=== PATIENT | male | born 1960 | race Caucasian/White ===

== ENCOUNTER 2019-03-04 16:00 | Emergency (ER) | payer BC ==
[2019-03-04] MEDS ORDERED: Sodium Chloride 0.9% 1,000 ML IV ONE (16:05)
[2019-03-04] MEDS ORDERED: Ketorolac 30 MG/ML SDV IVPUSH ONE (16:13)
--- NOTE | 2019-03-04 16:13 | EDM.PDOC ---
ED HPI GENERAL MEDICAL PROBLEM - General Chief Complaint: Abdominal Pain Stated Complaint: STOMACH PAIN Time Seen by Provider: 03/04/19 16:05 Source of Information: Reports: Patient History Limitations: Reports: No Limitations - History of Present Illness INITIAL COMMENTS - FREE TEXT/NARRATIVE: HISTORY AND PHYSICAL: History of present illness: Patient is a 58-year-old male who presents to the emergency room today with complaints of right upper abdominal pain. He states over the past 2 days he has had sensation of needing to void although has been having difficulty. States nothing makes the pain better or worse. Patient denies any fever, chills, headache, change in vision, syncope or near syncope. Denies any chest pain, back pain, shortness of breath or cough. Denies any nausea, vomiting, diarrhea, constipation or dysuria. Has not noted any blood in urine or stool. Denies any testicular erythema or soft tissue swelling. Patient has been eating and drinking appropriately. Review of systems: As per history of present illness and below otherwise all systems reviewed and negative. Past medical history: As per history of present illness and as reviewed below otherwise noncontributory. Surgical history: As per history of present illness and as reviewed below otherwise noncontributory. Social history: See social history for further information Family history: As per history of present illness and as reviewed below otherwise noncontributory. Physical exam: General: Well-developed and well-nourished 58-year-old male. Alert and oriented. Nontoxic appearing and in no acute distress. HEENT: Atraumatic, normocephalic, pupils equal and reactive bilaterally, negative for conjunctival pallor or scleral icterus, mucous membranes moist, trachea midline. No drooling or trismus noted. No meningeal signs. No hot potato voice noted. Lungs: Clear to auscultation, breath sounds equal bilaterally, chest nontender. Heart: S1S2, regular rate and rhythm without overt murmur Abdomen: Soft, nondistended, right upper and lower quadrant tenderness with palpation. Negative for masses or hepatosplenomegaly. Negative for costovertebral tenderness. Pelvis: Stable nontender. Genitourinary: Deferred. Rectal: Deferred. Skin: Intact, warm, dry. No lesions or rashes noted. Extremities: Atraumatic, moves all extremities per self without difficulty or deficits, negative for cords or calf pain. Neurovascular unremarkable. Neuro: Awake, alert, oriented. Cranial nerves II through XII unremarkable. Cerebellum unremarkable. Motor and sensory unremarkable throughout. Exam nonfocal. Notes: CT shows a 3 mm stone at the right UVJ causing moderate hydronephrosis. A few tiny stones are left in the kidney. Dr. Bennett was consulted on this case. Findings were shared with the patient. We'll give him instant med for [place], pain management. Prescription for Flomax as the pharmacy is closed. His first dose was given here. Urine strainer with education was provided. Supportive care measures were reviewed and discussed. Voices understanding and is agreeable to plan of care. Denies any further questions or concerns at this time. Diagnostics: CBC, CMP, UA, Lipase, CT abdomen and pelvis Therapeutics: IV fluids, Toradol, Flomax Prescription: [place] (#20) Flomax Impression: Kidney stone, right Plan 1. Increase your oral fluids. Make sure you're straining her urine when you urinate 2. Tylenol and/or ibuprofen as needed for pain management. [place] for moderate to severe pain. This medication may cause drowsiness a do not take it will driving her needing to be functioning outside of the house. His take your Flomax once daily. 3. Follow-up with urology, Dr. Cooley, as we discussed. Return to the ED as needed as discussed. Definitive disposition and diagnosis as appropriate pending reevaluation and review of above. Duration: Day(s): Location: Reports: Abdomen right abd Pain Score (Numeric/FACES): 7 - Related Data Allergies Allergy/AdvReac Type Severity Reaction Status Date / Time No Known Allergies Allergy Verified 03/04/19 16:16 Home Meds: Home Meds . [No Known Home Meds] 03/04/19 [History] ED ROS GENERAL - Review of Systems Review Of Systems: ROS reveals no pertinent complaints other than HPI. ED EXAM, GI/ABD - Physical Exam Exam: See Below (See dictation) Course - Vital Signs Last Recorded V/S: Last Vital Signs Temp 96.6 F 03/04/19 16:16 Pulse 91 03/04/19 16:16 Resp 18 03/04/19 16:16 BP 159/87 H 03/04/19 16:16 Pulse Ox 95 03/04/19 16:16 - Orders/Labs/Meds Labs: Laboratory Tests 03/04/19 03/04/19 03/04/19 Range/Units 16:25 16:31 16:31 WBC 13.00 H (4.0-11.0) K/uL RBC 5.12 (4.50-5.90) M/uL Hgb 15.7 (13.0-17.0) g/dL Hct 46.1 (38.0-50.0) % MCV 90.0 (80.0-98.0) fL MCH 30.7 (27.0-32.0) pg MCHC 34.1 (31.0-37.0) g/dL RDW Std Deviation 43.5 (28.0-62.0) fl RDW Coeff of Justin 13 (11.0-15.0) % Plt Count 222 (150-400) K/uL MPV 9.40 (7.40-12.00) fL Neut % (Auto) 87.1 H (48.0-80.0) % Lymph % (Auto) 9.1 L (16.0-40.0) % [place] % (Auto) 3.5 (0.0-15.0) % Eos % (Auto) 0.1 (0.0-7.0) % Baso % (Auto) 0.2 (0.0-1.5) % Neut # (Auto) 11.3 H (1.4-5.7) K/uL Lymph # (Auto) 1.2 (0.6-2.4) K/uL [place] # (Auto) 0.5 (0.0-0.8) K/uL Eos # (Auto) 0.0 (0.0-0.7) K/uL Baso # (Auto) 0.0 (0.0-0.1) K/uL Nucleated RBC % 0.0 /100WBC Nucleated RBCs # 0 K/uL Sodium 132 L (136-148) mmol/L Potassium 3.7 (3.5-5.1) mmol/L Chloride 99 (98-107) mmol/L Carbon Dioxide 23.0 (21.0-32.0) mmol/L BUN 16 (7.0-18.0) mg/dL Creatinine 1.2 (0.8-1.3) mg/dL Est Cr Clr Drug Dosing 68.74 mL/min Estimated GFR (MDRD) > 60.0 ml/min Glucose 192 H (74-106) mg/dL Calcium 9.2 (8.5-10.1) mg/dL Total Bilirubin 0.6 (0.2-1.0) mg/dL AST 18 (15-37) IU/L ALT 31 (14-63) IU/L Alkaline Phosphatase 89 (46-116) U/L Total Protein 7.1 (6.4-8.2) g/dL Albumin 4.1 (3.4-5.0) g/dL Globulin 3.0 (2.6-4.0) g/dL Albumin/Globulin Ratio 1.4 (0.9-1.6) Lipase 110 (73-393) U/L Urine Color YELLOW Urine Appearance CLEAR Urine pH 5.5 (5.0-8.0) Ur Specific [place] >= 1.030 (1.001-1.035) Urine Protein NEGATIVE (NEGATIVE) mg/dL Urine Glucose (UA) NEGATIVE (NEGATIVE) mg/dL Urine Ketones 15 H (NEGATIVE) mg/dL Urine Occult Blood LARGE H (NEGATIVE) Urine Nitrite NEGATIVE (NEGATIVE) Urine Bilirubin NEGATIVE (NEGATIVE) Urine Urobilinogen 0.2 (<2.0) EU/dL Ur Leukocyte Esterase NEGATIVE (NEGATIVE) Urine RBC 10-20 (0-2/HPF) Urine WBC 0-2 (0-5/HPF) Ur Epithelial Cells RARE (NONE-FEW) Urine Bacteria RARE (NEGATIVE) Meds: Medications Discontinued Medications Generic Name Dose Route Start Last Admin Trade Name Freq PRN Reason Stop Dose Admin Sodium Chloride 1,000 mls @ 999 mls/hr 03/04/19 16:05 03/04/19 16:34 Normal Saline IV 03/04/19 17:05 999 mls/hr STAT ONE Administration Ketorolac Tromethamine 30 mg 03/04/19 16:13 03/04/19 16:34 Toradol IVPUSH 03/04/19 16:14 30 mg ONETIME ONE Administration Tamsulosin HCl 0.4 mg 03/04/19 17:17 03/04/19 17:29 Flomax PO 03/04/19 17:18 0.4 mg ONETIME ONE Administration Departure - Departure Time of Disposition: 17:25 Disposition: Home, Self-Care 01 Clinical Impression: Kidney stone on right side - Discharge Information Instructions: Kidney Stones, [id number] Referrals: PCP,Unknown [Primary Care Provider] - Forms: ED Department Discharge Additional Instructions: The following information is given to patients seen in the emergency department who are being discharged to home. This information is to outline your options for follow-up care. We provide all patients seen in our emergency department with a follow-up referral. The need for follow-up, as well as the timing and circumstances, are variable depending upon the specifics of your emergency department visit. If you don't have a primary care physician on staff, we will provide you with a referral. We always advise you to contact your personal physician following an emergency department visit to inform them of the circumstance of the visit and for follow-up with them and/or the need for any referrals to a consulting specialist. The emergency department will also refer you to a specialist when appropriate. This referral assures that you have the opportunity for follow-up care with a specialist. All of these measure are taken in an effort to provide you with optimal care, which includes your follow-up. Under all circumstances we always encourage you to contact your private physician who remains a resource for coordinating your care. When calling for follow-up care, please make the office aware that this follow-up is from your recent emergency room visit. If for any reason you are refused follow-up, please contact the [facility] Emergency Department at and asked to speak to the emergency department charge nurse. [facility] [address] [place] [id number] [id number] [facility] Specialty Care - Urology [address] [place] [id number] 1. Increase your oral fluids. Make sure you're straining her urine when you urinate 2. Tylenol and/or ibuprofen as needed for pain management. [place] for moderate to severe pain. This medication may cause drowsiness a do not take it will driving her needing to be functioning outside of the house. His take your Flomax once daily. 3. Follow-up with urology, Dr. Cooley, as we discussed. Return to the ED as needed as discussed.
[2019-03-04 16:59] LABS: CHLORIDE,CL 99 mmol/L (98-107); SODIUM,NA 132 mmol/L (136-148)
--- NOTE | 2019-03-04 17:14 | CT ---
INDICATION: Right lower quadrant abdomen pain. TECHNIQUE: CT abdomen and pelvis without contrast. COMPARISON: None. FINDINGS: Lower chest: Unremarkable. Liver: Normal in size and attenuation. No masses. Gallbladder and bile ducts: No stones or inflammation. No biliary dilatation. Pancreas: Unremarkable. No mass or inflammation. Spleen: Normal in size. No masses. Adrenal glands: Small adenoma is in the right adrenal gland. Kidneys: A 3 mm stone is at the right ureterovesical junction causing moderate hydronephrosis. Few tiny stones are in the lower pole of the left kidney. GI tract: Unremarkable. Normal in caliber. No sign of mass or inflammation. Normal appendix. Vasculature: Unremarkable. Lymph nodes: No lymphadenopathy. Abdominal wall/Omentum/Peritoneum: Unremarkable. No sign of mass or infiltration. No free air or significant free fluid. Pelvis: Unremarkable. No pelvic masses. Bones: Degenerative disc spondylosis and prominent posterior disc protrusion are present at L5-S1. IMPRESSION: 3 mm stone at the right UVJ is causing moderate hydronephrosis. Few tiny stones are in the left kidney. Please note that all CT scans at this facility use dose modulation, iterative reconstruction, and/or weight-based dosing when appropriate to reduce radiation dose to as low as reasonably achievable. Dictated by Gareth Loco MD @ Mar 04 2019 5:07PM Signed by Dr. Gareth Loco @ Mar 04 2019 5:14PM
[2019-03-04] MEDS ORDERED: Tamsulosin 0.4 MG Cap.ER PO ONE (17:17)
== END 2019-03-04 17:54 | disposition home or self-care (01) ==
LOC: MW.ED 16:00
DX: N13.2 Hydronephrosis with renal and ureteral calculous obstruction (principal)
CPT/HCPCS: 74176; 80053; 81001; 83690; 85025; 96361; 96374; 99284; A9270; J1885; J7040

== ENCOUNTER 2025-07-21 12:39 | Inpatient (IN) | payer BC ==
[2025-07-21] MEDS ORDERED: Sodium Chloride 0.9% 10 ML Syringe FLUSH PRN ×2 (12:53→14:30)
[2025-07-21] MEDS ORDERED: Sodium Chloride 0.9% 2.5 ML Syringe FLUSH PRN ×2 (12:53→14:30)
[2025-07-21 13:06] LABS: BASOPHILS ABSOLUTE AUTO 0.03 K/uL (0.00-0.20); BASOPHILS PERCENT AUTO 0.3 % (0.0-1.0); EOSINOPHILS ABSOLUTE AUTO 0.04 K/uL (0.00-0.45); EOSINOPHILS PERCENT AUTO 0.4 % (0.0-6.0); IMMATURE GRAN ABSOLUTE AUTO 0.02 K/uL (0.00-0.05); IMMATURE GRAN PERCENT AUTO 0.2 % (0.0-0.4); LYMPHOCYTES ABSOLUTE AUTO 2.29 K/uL (1.00-4.80); LYMPHOCYTES PERCENT AUTO 23.9 % (24.0-44.0); MEAN PLATELET VOLUME 9.6 fL (9.4-12.4); MONOCYTES ABSOLUTE AUTO 0.43 K/uL (0.00-0.80); MONOCYTES PERCENT AUTO 4.5 % (0.0-8.0); NEUTROPHILS ABSOLUTE AUTO 6.76 K/uL (1.80-7.70); NEUTROPHILS PERCENT AUTO 70.7 % (41.0-71.0); NRBC ABSOLUTE 0.00 K/uL (0.00-0.02); NRBC PERCENT 0.0 /100WBC (0.0-0.2); PLATELET COUNT,PLT 213 K/uL (150-400); RED BLOOD CELL COUNT 5.73 M/uL (4.52-5.90); WHITE BLOOD CELL COUNT,WBC 9.57 K/uL (3.9-11.3)
[2025-07-21] MEDS ORDERED: 50% Dextrose in Water 50 ML Syringe IVPUSH PRN ×2 (13:07→14:42)
[2025-07-21] MEDS: Iopamidol 755 MG/ML 500 ML Multipack Bottle IVPUSH STA (13:14)
[2025-07-21] MEDS: Insulin Regular, Human 100 Units/ML 10 ML Vial IVPUSH ONE (13:18)
[2025-07-21 13:19] LABS: INR 0.97 (0.86-1.11); PTT,PARTIAL THROMBOPLSTIN TIME 26.5 SEC (23.9-30.7)
[2025-07-21 13:35] LABS: BASE EXCESS VENOUS 4.4 (-2.0-3.0); BICARBONATE,VENOUS 28.0 mEq/L (22-29); PCO2 VENOUS 39.0 mmHG (41-51); PH,VENOUS 7.47 (7.32-7.43); PO2 VENOUS 35.0 mmHG (35-45)
[2025-07-21 13:37] LABS: A/G RATIO 1.2 (0.9-1.6); ALANINE AMINOTRANSFERASE,ALT 29 IU/L (14-63); ASPARTATE AMNIOTRANSFERASE,AST 19 IU/L (15-37); BILIRUBIN TOTAL 0.7 mg/dL (0.2-1.0); BLOOD UREA NITROGEN,BUN 10 mg/dL (7.0-18.0); CARBON DIOXIDE,CO2 28.6 mmol/L (21.0-32.0); CHLORIDE,CL 97 mmol/L (98-107); CREATININE 1.1 mg/dL (0.8-1.3); EST CRCL DRUG DOSING (CG) 71.89 mL/min; ETHANOL BLOOD MEDICAL <3 mg/dL; GLUCOSE RANDOM 403 mg/dL (74-106); POTASSIUM,K 4.2 mmol/L (3.5-5.1); PROTEIN TOTAL,TP 7.1 g/dL (6.4-8.2); SODIUM,NA 132 mmol/L (136-148)
[2025-07-21 13:39] LABS: ESTIMATED GFR 76 mL/min (>60)
[2025-07-21] MEDS ORDERED: Ondansetron 4 MG/2 ML SDV IVPUSH PRN (14:30)
[2025-07-21] MEDS: Calcium Gluconate 10% 1 GM/10 ML SDV IV ONE (14:31)
[2025-07-21 14:39] LABS: AMPHETAMINES SCREEN, URINE NEGATIVE (CUTOFF=500); BUPRENORPHINE SCREEN,URINE NEGATIVE (CUTOFF=10); METHADONE SCREEN, URINE NEGATIVE (CUTOFF=200); METHAMPHETAMINES SCREEN, URINE NEGATIVE (CUTOFF=500); OXYCODONE SCREEN,URINE NEGATIVE (CUT0FF=100); PCP SCREEN,URINE NEGATIVE (CUTOFF=25); THC SCREEN,URINE 20 NG/ML NEGATIVE (CUTOFF=50)
[2025-07-21] MEDS: Aspirin 325 MG Tab.EC PO ONE (14:47)
[2025-07-21 15:37] LABS: CHOLESTEROL HDL 36 mg/dL (40-60); CHOLESTEROL TOTAL 201 mg/dL (50-200); TSH ULTRASENSITIVE 2.04 uIU/mL (0.36-3.74)
[2025-07-22 06:17] LABS: BASOPHILS ABSOLUTE AUTO 0.03 K/uL (0.00-0.20); BASOPHILS PERCENT AUTO 0.3 % (0.0-1.0); EOSINOPHILS ABSOLUTE AUTO 0.14 K/uL (0.00-0.45); EOSINOPHILS PERCENT AUTO 1.6 % (0.0-6.0); IMMATURE GRAN ABSOLUTE AUTO 0.02 K/uL (0.00-0.05); IMMATURE GRAN PERCENT AUTO 0.2 % (0.0-0.4); LYMPHOCYTES ABSOLUTE AUTO 2.65 K/uL (1.00-4.80); LYMPHOCYTES PERCENT AUTO 30.9 % (24.0-44.0); MEAN PLATELET VOLUME 9.5 fL (9.4-12.4); MONOCYTES ABSOLUTE AUTO 0.60 K/uL (0.00-0.80); MONOCYTES PERCENT AUTO 7.0 % (0.0-8.0); NEUTROPHILS ABSOLUTE AUTO 5.14 K/uL (1.80-7.70); NEUTROPHILS PERCENT AUTO 60.0 % (41.0-71.0); NRBC ABSOLUTE 0.00 K/uL (0.00-0.02); NRBC PERCENT 0.0 /100WBC (0.0-0.2); PLATELET COUNT,PLT 206 K/uL (150-400); RED BLOOD CELL COUNT 5.68 M/uL (4.52-5.90); WHITE BLOOD CELL COUNT,WBC 8.58 K/uL (3.9-11.3)
[2025-07-22 06:55] LABS: BLOOD UREA NITROGEN,BUN 9.0 mg/dL (7.0-18.0); CARBON DIOXIDE,CO2 27.2 mmol/L (21.0-32.0); CHLORIDE,CL 103.0 mmol/L (98-107); CREATININE 1.0 mg/dL (0.8-1.3); EST CRCL DRUG DOSING (CG) 76.59 mL/min; ESTIMATED GFR 85.0 mL/min (>60); GLUCOSE RANDOM 220.0 mg/dL (74-106); POTASSIUM,K 4.0 mmol/L (3.5-5.1); SODIUM,NA 139.0 mmol/L (136-148)
[2025-07-22] MEDS: Insulin Glargine,Human Rec. Analog 100 Units/ML 3 ML Pen SUBCUT SCH (12:40)
[2025-07-22] MEDS: Gadoteridol 279.3 MG/ML 20 ML SDV IVPUSH ONE (13:07)
== END 2025-07-22 17:20 | disposition home or self-care (01) | DRG 45 ==
LOC: MW.ED 12:39 → MW.MS 14:17
PROVIDERS: ADMIT Family Medicine; ATTEND Family Medicine
DX: I63.9 Cerebral infarction, unspecified (principal); F17.200 Nicotine dependence, unspecified, uncomplicated; I10 Essential (primary) hypertension; E11.9 Type 2 diabetes mellitus without complications; I69.993 Ataxia following unspecified cerebrovascular disease; E87.8 Other disorders of electrolyte and fluid balance, not elsewhere classified; E78.5 Hyperlipidemia, unspecified; E87.1 Hypo-osmolality and hyponatremia; Z79.82 Long term (current) use of aspirin; Z79.4 Long term (current) use of insulin; Z79.899 Other long term (current) drug therapy
CPT/HCPCS: 36415; 70450; 70450-26; 70496; 70496-26; 70498; 70498-26; 70553; 70553-26; 80048; 80053; 80061; 80305; 80307; 82009; 82607; 82746; 82803; 82947; 83036; 83735; 84443; 84484; 85025; 85610; 85730; 93005; 93010; 93306; 96360; 97161-GP; 97165-GO; 99221; 99239; 99285; 99285-25; A9270-GY; A9579; J0612; J1815-GY; J7030; Q9967